=== PATIENT | female | born 1940 | race Caucasian/White ===

== ENCOUNTER 2023-11-01 08:20 | Observation (INO) ==
--- NOTE | 2023-11-01 08:38 | Emergency Department Note ---
Impression & Plan Vertigo, Right-sided carotid artery disease, Hypoxia ED Provider Note NAME: CYDNEY REYNOLDS AGE: 82 SEX: F : 1940 ARRIVES VIA: Walk-In INFORMANT: Patient, ED PROVIDER(S): Boubacar Rosales DO CHIEF COMPLAINT: Off-balance HPI: The patient is an 82-year-old female who presented to the emergency department for an evaluation of feeling off balance. The patient had symptoms that began on Tuesday evening. She is visiting family from [place]. She came to the emergency department today because of ongoing worsening symptoms. She feels that she cannot walk. She cannot turn her head without feeling off balance. She describes nausea. She denies having any vomiting. She denies having any chest pain or difficulty breathing. The patient did have a slight runny nose she did a home COVID test that was negative. ROS: See above HPI for pertinent positives & negatives. A total of 10 systems reviewed and were otherwise negative. PAST MEDICAL HISTORY: See Below PAST SURGICAL HISTORY: See Below FAMILY HISTORY: See Below SOCIAL HISTORY: See Below HOME MEDICATIONS: See Below ALLERGIES: See Below VITALS: See Below PHYSICAL EXAMINATION: GENERAL: Patient is awake alert in no acute distress patient is resting comfortably and showing no signs of anxiety EYES: The conjunctivae are clear. The pupils are round and reactive. No nystagmus was elicited. EARS, NOSE, MOUTH AND THROAT: The nose is without any evidence of any deformity. NECK: The neck is nontender and supple. RESPIRATORY: Normal respiratory effort is noted there is no evidence of wheezing rhonchi or rales CARDIOVASCULAR: Regular rate and rhythm noted there no murmurs rubs or gallops normal S1 normal S2. GASTROINTESTINAL: The abdomen is soft. Abdomen is nontender. MUSCULOSKELETAL/EXTREMITIES: There is no evidence of gross deformity full range of motion is noted in the hips and shoulders. SKIN: There is no obvious evidence of any rash. There are no petechiae, pallor or cyanosis noted. NEUROLOGIC: Patient is awake alert and oriented x3 strength is symmetric patellar reflexes are 2+ bilaterally. There is no drift in the upper extremities. Speech was clear. Rapid alternating movements appear symmetric. [id number] was symmetric. MEDICAL DECISION MAKING: The patient is an 82-year-old female who presented to the emergency department with ataxia and vertigo symptoms. She had no focal neurologic deficits but her gait was unsteady. Given her age and comorbidities further laboratory and radiographic studies were obtained to rule out a central cause for her vertigo. I discussed the patient's laboratory and radiographic studies with her. She was found to have significant right-sided carotid artery disease. 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 I discussed the patient's laboratory and radiographic studies with the [facility] hospitalist. They have agreed to evaluate the patient in the emergency department for further management and disposition. The patient was treated with Zofran as well as Phenergan. She did have some episodes of low oxygen saturation which I am not sure how to explain at this time. Chest x-ray showed no acute process. She did not have chest pain or tachycardia. This may require further workup. Triage Nursing notes reviewed. Prior medical records reviewed Vital Signs: reviewed and remarkable for hypertension and hypoxia. Differential diagnosis: Benign positional vertigo, dehydration, hypovolemia, anemia, tumor, infection, hypoglycemia, electrolyte abnormalities, cardiac sources, intracerebral event, toxicologic, neurologic, as well as other pathologies. ER treatment provided: See below Diagnostics interpreted by me: ECG: EKG was obtained in the emergency department. My interpretation is normal sinus rhythm at 93 bpm. There were no PVCs. Right bundle-branch block pattern was noted. Inferior Q waves were also appreciated. No previous tracing was available. Cardiac Monitoring: An order was placed for continuous cardiac monitoring. The monitor shows a rate of 90 bpm with sinus rhythm. Laboratory studies: As stated above and show below. Imaging studies: See below. Radiographic imaging was reviewed by myself Consultation(s): I discussed this case with Dr. Villalba who is on-call for the [facility] hospitalist group. Past Med/Surg History Problem List Hypoxia (Acute) Right-sided carotid artery disease (Acute) Vertigo (Acute) Medical History Smoking history Hyperlipidemia Hypertension Diabetes Social History Smoking Status: Former smoker Preferred Language: [place] Feels Safe at Home: Yes Allergies Allergies Allergy/AdvReac Type Severity Reaction Status Date / Time No Known Allergies Allergy Unverified 11/01/23 10:45 Home Meds Home Medications Medication Instructions Recorded Confirmed aspirin 81 mg tablet,delayed 81 mg PO DAILY 11/01/23 11/01/23 release budesonide 3 mg 6 mg PO DAILY 11/01/23 11/01/23 capsule,delayed,extended release clobetasol 0.05 % topical ointment 1 applic topical DAILY PRN Skin 11/01/23 11/01/23 Irritation losartan 100 mg tablet 100 mg PO DAILY 11/01/23 11/01/23 metformin 750 mg tablet,extended 750 mg PO DAILY 11/01/23 11/01/23 release 24 hr rosuvastatin 5 mg tablet 5 mg PO DAILY 11/01/23 11/01/23 Results & Data (ED) Vital Signs Vital Signs - 24 hr 11/01/23 08:25 11/01/23 08:30 11/01/23 08:38 Temperature 36.9 C Temperature Source Oral Pulse Rate 100 H 94 H Pulse Rate from SpO2 Sensor 94 H Respiratory Rate 20 20 Respiratory Effort / Characteristics Non-Labored Spontaneous Respiratory Depth Normal Respiratory Pattern Regular Blood Pressure 142/65 H 144/59 H Blood Pressure Mean 90 110 Pulse Oximetry 93 90 88 L Oxygen Delivery Method Room Air Room Air Oxygen Flow Rate Sepsis Recent Fever Within 48 Hours No Sepsis New/Unexplained Change in Mental Status No Sepsis Action Taken by Nursing No Action Required 11/01/23 08:39 11/01/23 08:40 11/01/23 08:57 Temperature Temperature Source Pulse Rate 93 H 92 H Pulse Rate from SpO2 Sensor 92 H Respiratory Rate 20 22 Respiratory Effort / Characteristics Respiratory Depth Respiratory Pattern Blood Pressure Blood Pressure Mean Pulse Oximetry 87 L 88 L Oxygen Delivery Method Nasal Cannula Oxygen Flow Rate 1 Sepsis Recent Fever Within 48 Hours Sepsis New/Unexplained Change in Mental Status Sepsis Action Taken by Nursing 11/01/23 09:00 11/01/23 09:14 11/01/23 09:30 Temperature Temperature Source Pulse Rate 98 H 97 H 92 H Pulse Rate from SpO2 Sensor 98 H 97 H 92 H Respiratory Rate 18 18 Respiratory Effort / Characteristics Respiratory Depth Respiratory Pattern Blood Pressure 134/63 159/88 H 141/67 H Blood Pressure Mean 106 122 110 Pulse Oximetry 92 92 Oxygen Delivery Method Nasal Cannula Nasal Cannula Oxygen Flow Rate 1 1 Sepsis Recent Fever Within 48 Hours Sepsis New/Unexplained Change in Mental Status Sepsis Action Taken by Nursing 11/01/23 10:00 Temperature Temperature Source Pulse Rate 95 H Pulse Rate from SpO2 Sensor 97 H Respiratory Rate 18 Respiratory Effort / Characteristics Respiratory Depth Respiratory Pattern Blood Pressure 112/64 Blood Pressure Mean 87 Pulse Oximetry 92 Oxygen Delivery Method Nasal Cannula Oxygen Flow Rate 1 Sepsis Recent Fever Within 48 Hours Sepsis New/Unexplained Change in Mental Status Sepsis Action Taken by Intermediate Medications Current Medication List: was personally reviewed by me Laboratory Data Attestation: I reviewed the patient's lab results. 11/01/23 08:40 11/01/23 08:40 Lab Results 11/01/23 11/01/23 11/01/23 Range/Units 08:39 08:40 08:56 WBC 5.88 (4.8-10.8) K/ul RBC 4.58 (4.20-5.40) M/uL Hgb 14.1 (12.0-16.0) g/dl POC Hgb 14.3 (12.0-16.0) g/dl Hct 41.8 (37.0-47.0) % POC Hct 42 (37-47) % MCV 91.3 (80.0-100.0) fL MCH 30.8 (25.0-34.0) pg MCHC 33.7 (32.0-36.0) g/dL RDW Std Deviation 53.1 H (36.4-46.3) fL RDW Coeff of Duc 15.8 H (11.5-14.5) % Plt Count 151 (130-400) K/uL MPV 9.9 (9.4-12.4) fL Immature Gran % (Auto) 0.3 % Neut % (Auto) 79.6 % Lymph % (Auto) 15.0 % Hendry % (Auto) 4.8 % Eos % (Auto) 0.0 % Baso % (Auto) 0.3 % Neut # (Auto) 4.68 (1.40-6.50) K/uL Lymph # (Auto) 0.88 L (1.20-3.40) K/uL Hendry # (Auto) 0.28 (0.11-0.59) K/uL Eos # (Auto) 0.00 (0.00-0.50) K/uL Baso # (Auto) 0.02 (0.00-0.20) K/uL Immature Gran # (Auto) 0.02 (0.01-0.20) K/uL PT 11.0 (9.0-12.0) Seconds INR 1.0 (0.9-1.1) APTT 27 (21-31) Seconds PTT Ratio 1.0 POC Sodium 133 L (135-144) mmol/L Sodium 133 L (136-145) mmol/L POC Potassium 3.9 (3.3-5.0) mmol/L Potassium 4.0 (3.5-5.1) mmol/L POC Chloride 98 L (101-112) mmol/L Chloride 100 (98-107) mmol/L Carbon Dioxide 25 (21-32) mmol/L POC Total CO2 25 (24-31) mmol/L Anion Gap 8 (3-11) POC Anion Gap 16.0 (16-25) mmol/L POC BUN 14 (7-18) mg/dl BUN 15 (6-23) mg/dl Creatinine 0.74 (0.6-1.2) mg/dl POC Creatinine 0.8 (0.6-1.3) mg/dl Est Cr Clr Drug Dosing Not Reportable Est GFR ( Amer) 87.4 ml/min Est GFR (Non-Af Amer) 75.4 ml/min BUN/Creatinine Ratio 20.3 H (10-20) Glucose 118 H (70-99(Fasting)) mg/dl POC Glucose 118 H (70-99) mg/dl POC Glucose (other) 125 H (70-99) mg/dl Calcium 9.1 (8.6-10.3) mg/dl POC Ioniz Calcium Kai 1.16 (1.12-1.32) mmol/l Magnesium 1.8 (1.7-2.4) mg/dl Total Bilirubin 1.0 (0.2-1.0) mg/dl AST 35 (13-39) U/L ALT 31 (7-52) U/L Alkaline Phosphatase 64 (34-104) U/L Troponin I High Sens 12.0 (0-14) pg/ml Total Protein 6.8 (6.0-8.3) gm/dl Albumin 3.7 (3.4-5.0) gm/dl Globulin 3.1 (2.5-4.0) gm/dl Albumin/Globulin Ratio 1.2 (0.9-2) Administered Medications Discontinued Medications Albuterol (Albut/Ipratrop 3mg/0.5mg Neb 3 Ml Vial) 3 ml NEB NOW STA; Protocol Stop: 11/01/23 11:01 Last Admin: 11/01/23 11:13 Dose: 3 ml Documented By: TARAN Lactated Ringer's (Lr) 1,000 mls @ 999 mls/hr IV .Q1H1M ONE Stop: 11/01/23 12:00 Last Admin: 11/01/23 11:13 Dose: 999 mls/hr Documented By: TARAN Ioversol (Optiray 320 125ml) 120 ml IV ONCE ONE Stop: 11/01/23 09:08 Last Admin: 11/01/23 09:07 Dose: 120 ml Documented By: MADDY Meclizine HCl (Meclizine Hcl 25 Mg Tab) 25 mg PO NOW STA Stop: 11/01/23 08:36 Last Admin: 11/01/23 08:44 Dose: 25 mg Documented By: TARAN Ondansetron HCl (Ondansetron Inj 2 Mg/Ml 2 Ml Vial) 4 mg IV NOW STA Stop: 11/01/23 08:36 Last Admin: 11/01/23 08:44 Dose: 4 mg Documented By: TARAN Imaging Data Attestation: I personally reviewed and interpreted this imaging study as follows: My Impression: 1 view chest x-ray was obtained in the emergency department. My interpretation is no free air or definite infiltrate, final report below. CT of the brain was obtained in the emergency department. My interpretation is no intracranial hemorrhage or mass effect, final report below. Radiologist's Impression: Chest X-Ray 11/01/23 08:35 XR chest 1V portable CLINICAL HISTORY: neuro deficit, acute stroke suspected COMPARISON STUDY: No previous studies for comparison. FINDINGS: There is no pneumothorax or pleural effusion. No consolidation is identified to suggest pneumonia. There is mild cardiomegaly. There is underlying emphysema. 7 mm irregular left mid to upper lung density is present. Interstitial thickening is likely chronic. IMPRESSION: 1. No acute cardiopulmonary findings. 2. 7 mm irregular left mid to upper lung density. This is likely artifactual however a pulmonary nodule could appear similar. Nonemergent chest CT is recommended. 3. Emphysema. ACT 112: Positive. There are findings on this exam that require communication between the performing entity and the patient following Patient Test Result Information Act ([place] Act 112) guidelines. Electronically signed by: Arpan Aguirre M.D. 11/01/2023 9:[address] 11/01/23 08:[address] OF THE BRAIN; CT ANGIOGRAM OF THE BRAIN CLINICAL HISTORY: Dizziness. Loss of balance. Difficulty with ambulation. Neurological deficit. Stroke like symptoms. COMPARISON STUDY: No priors. TECHNIQUE: Unenhanced axial CT scan of the brain is performed. Subsequently, following the IV administration of 120 cc of Optiray 320, CT angiogram of the brain was performed from the skull base to the vertex. Images are reviewed in the axial, sagittal, and coronal planes. 3-D MIPS images are created and assessed. IV contrast was administered without complication. A dose lowering technique was utilized adhering to the principles of ALARA. CT DOSE: 934. mGy.cm FINDINGS: Brain parenchyma: There is age related involutional change noting mild subcortical and periventricular microangiopathic disease. There is no hemorrhage, mass effect, or evidence of acute territorial ischemia by CT criteria. There is no evidence of enhancing mass lesion on the angiogram phase images. No extra-axial fluid collection is seen. Yoder-white matter differentiation is preserved. Ventricles, sulci, and cisterns: Prominent secondary to additional change. CT angiogram of the brain: There is atherosclerotic calcification of the cavernous carotid and vertebral arteries. The internal carotid arteries are widely patent, as are the anterior and middle cerebral arteries. The vertebrobasilar system and posterior cerebral arteries are widely patent. The vertebral arteries are codominant. 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 No additional aneurysm is identified. No foci of high-grade stenosis or focal vessel occlusion is seen throughout the intracranial circulation. Dural sinuses: Clear as visualized. Orbits: The bony orbits are intact. The orbital contents are normal as visualized noting bilateral ocular lens implants. Sinuses and mastoids: The visualized paranasal sinuses are clear. The mastoid air cells are well pneumatized. Calvarium: Unremarkable. IMPRESSION: 1. There is no hemorrhage, mass effect, or evidence of acute territorial ischemia by CT criteria. 2. 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 3. Otherwise unremarkable CT of the brain. ACT 112: Negative or not required by law. Electronically signed by: Tyrone Hoover M.D. 11/01/2023 9:23 AM Head CTA 11/01/23 08:[address] OF THE BRAIN; CT ANGIOGRAM OF THE BRAIN CLINICAL HISTORY: Dizziness. Loss of balance. Difficulty with ambulation. Neurological deficit. Stroke like symptoms. COMPARISON STUDY: No priors. TECHNIQUE: Unenhanced axial CT scan of the brain is performed. Subsequently, following the IV administration of 120 cc of Optiray 320, CT angiogram of the brain was performed from the skull base to the vertex. Images are reviewed in the axial, sagittal, and coronal planes. 3-D MIPS images are created and assessed. IV contrast was administered without complication. A dose lowering technique was utilized adhering to the principles of ALARA. CT DOSE: 934. mGy.cm FINDINGS: Brain parenchyma: There is age related involutional change noting mild subcortical and periventricular microangiopathic disease. There is no hemorrhage, mass effect, or evidence of acute territorial ischemia by CT criteria. There is no evidence of enhancing mass lesion on the angiogram phase images. No extra-axial fluid collection is seen. Yoder-white matter differentiation is preserved. Ventricles, sulci, and cisterns: Prominent secondary to additional change. CT angiogram of the brain: There is atherosclerotic calcification of the cavernous carotid and vertebral arteries. The internal carotid arteries are widely patent, as are the anterior and middle cerebral arteries. The vertebrobasilar system and posterior cerebral arteries are widely patent. The vertebral arteries are codominant. 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 No additional aneurysm is identified. No foci of high-grade stenosis or focal vessel occlusion is seen throughout the intracranial circulation. Dural sinuses: Clear as visualized. Orbits: The bony orbits are intact. The orbital contents are normal as visualized noting bilateral ocular lens implants. Sinuses and mastoids: The visualized paranasal sinuses are clear. The mastoid air cells are well pneumatized. Calvarium: Unremarkable. IMPRESSION: 1. There is no hemorrhage, mass effect, or evidence of acute territorial ischemia by CT criteria. 2. 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 3. Otherwise unremarkable CT of the brain. ACT 112: Negative or not required by law. Electronically signed by: Tyrone Hoover M.D. 11/01/2023 9:23 AM Neck CTA 11/01/23 08:35 CT ANGIOGRAPHY OF THE NECK WITH CONTRAST CLINICAL HISTORY: neuro deficit, acute stroke suspected COMPARISON STUDY: No previous studies for comparison. Technique: CT angiography of the carotid and vertebral arteries was obtained using Optiray and 3D reconstruction on an independent workstation. NASCET criteria was utilized. Automated exposure control was utilized for the study. A dose lowering technique was utilized adhering to the principles of ALARA. Findings: Emphysema is incidentally noted within visualized portions of the lung apices. There is no cervical lymphadenopathy. There are no cervical spine fractures. The bilateral vertebral arteries are patent. No stenoses within the vertebral arteries are present. There is no aneurysm or dissection within the neck. There is extensive calcified plaque within the proximal right internal carotid artery which results in 70% stenosis. The patent right internal carotid artery measures 1.4 mm at site of narrowing and 3.5 mm distally. There is mild narrowing of the proximal left internal carotid artery. The vessel measures 2.3 mm at site of narrowing and 3.7 mm distally. IMPRESSION: 1. 70% stenosis of the proximal right internal carotid artery due to calcified atherosclerotic plaque. 30% stenosis of the proximal left internal carotid artery. 2. Patent bilateral vertebral arteries. ACT 112: Negative or not required by law. Electronically signed by: Arpan Aguirre M.D. 11/01/2023 9:30 AM Discharge Plan Visit Data Chief Complaint: Neuro Symptoms/Deficit Stated Complaint: UNABLE TO WALK, NO BALANCE ED Provider: Boubacar Rosales Discharge Problem: Vertigo, Right-sided carotid artery disease, Hypoxia Patient Disposition: Being Evaluated by Hospitalist Discharge Instructions Interventions: ED Discharge Assessment Last Done: 11/01/23 12:53 Discharge Problem: Right-sided carotid artery disease Qualifiers: Carotid artery disease type: unspecified Qualified Code(s): I77.9 - Disorder of arteries and arterioles, unspecified
[2023-11-01] MEDS: ONDANSETRON INJ 2 MG/ML 2 ML VIAL IV STA (08:44)
[2023-11-01] MEDS: MECLIZINE HCL 25 MG TAB PO STA (08:44)
[2023-11-01 09:01] LABS: Basophils # (auto) 0.02 K/uL (0.00-0.20); Basophils % (auto) 0.3 %; Hematocrit (blood only) 41.8 % (37.0-47.0); Hemoglobin 14.1 g/dl (12.0-16.0); Immature Granulocytes # (auto) 0.02 K/uL (0.01-0.20); Immature Granulocytes % (auto) 0.3 %; Lymphocytes # (auto) 0.88 K/uL (1.20-3.40); Mean Corpuscular Hemoglobin 30.8 pg (25.0-34.0); Mean Corpuscular Hgb Conc 33.7 g/dL (32.0-36.0); Mean Corpuscular Volume 91.3 fL (80.0-100.0); Mean Platelet Volume 9.9 fL (9.4-12.4); Monocytes # (auto) 0.28 K/uL (0.11-0.59); Monocytes % (auto) 4.8 %; Neutrophils # (auto) 4.68 K/uL (1.40-6.50); Neutrophils % (auto) 79.6 %; Platelet Count 151 K/uL (130-400); RDW Coefficient of Variation 15.8 % (11.5-14.5); RDW Standard Deviation 53.1 fL (36.4-46.3); Red Blood Count 4.58 M/uL (4.20-5.40); White Blood Count 5.88 K/ul (4.8-10.8)
[2023-11-01] MEDS: OPTIRAY 320 125ml IV ONE (09:07)
[2023-11-01 09:08] LABS: iSTAT Creatinine 0.8 mg/dl (0.6-1.3); iSTAT Hemoglobin 14.3 g/dl (12.0-16.0); iSTAT Ionized Calcium 1.16 mmol/l (1.12-1.32); iSTAT Potassium 3.9 mmol/L (3.3-5.0)
[2023-11-01 09:16] LABS: Alanine Aminotransferase 31 U/L (7-52); Albumin Globulin Ratio 1.2 (0.9-2); Albumin Level 3.7 gm/dl (3.4-5.0); Alkaline Phosphatase 64 U/L (34-104); Anion Gap 8 (3-11); Aspartate Aminotransferase 35 U/L (13-39); BUN Creatinine Ratio 20.3 (10-20); Blood Urea Nitrogen 15 mg/dl (6-23); Calcium 9.1 mg/dl (8.6-10.3); Carbon Dioxide 25 mmol/L (21-32); Chloride 100 mmol/L (98-107); Est GFR (African American) 87.4 ml/min; Est GFR (Non-African American) 75.4 ml/min; Globulin 3.1 gm/dl (2.5-4.0); Glucose 118 mg/dl (70-99(Fasting)); Magnesium 1.8 mg/dl (1.7-2.4); Sodium 133 mmol/L (136-145); Total Protein 6.8 gm/dl (6.0-8.3)
--- NOTE | 2023-11-01 09:20 | XRay Report ---
XR chest 1V portable CLINICAL HISTORY: neuro deficit, acute stroke suspected COMPARISON STUDY: No previous studies for comparison. FINDINGS: There is no pneumothorax or pleural effusion. No consolidation is identified to suggest pne umonia. There is mild cardiomegaly. There is underlying emphysema. 7 mm irregular left mid to upper l bree density is present. Interstitial thickening is likely chronic. IMPRESSION: 1. No acute cardiopulmonary findings. 2. 7 mm irregular left mid to upper lung density. This is likely artifactual however a pulmonary nodu le could appear similar. Nonemergent chest CT is recommended. 3. Emphysema. ACT 112: Positive. There are findings on this exam that require communication between the performing entity and the patient following Patient Test Result [place] Act ([place] Act 112) guidelines. Electronically signed by: Arpan Aguirre M.D. 11/01/2023 9:18 AM
--- NOTE | 2023-11-01 09:25 | CT Scan Report ---
UNENHANCED CT OF THE BRAIN; CT ANGIOGRAM OF THE BRAIN CLINICAL HISTORY: Dizziness. Loss of balance. Difficulty with ambulation. Neurological deficit. Strok e like symptoms. COMPARISON STUDY: No priors. TECHNIQUE: Unenhanced axial CT scan of the brain is performed. Subsequently, following the IV adminis tration of 120 cc of Optiray 320, CT angiogram of the brain was performed from the skull base to the vertex. Images are reviewed in the axial, sagittal, and coronal planes. 3-D MIPS images are created a nd assessed. IV contrast was administered without complication. A dose lowering technique was utiliz ed adhering to the principles of ALARA. CT DOSE: 934. mGy.cm FINDINGS: Brain parenchyma: There is age related involutional change noting mild subcortical and periventricula r microangiopathic disease. There is no hemorrhage, mass effect, or evidence of acute territorial isc hemia by CT criteria. There is no evidence of enhancing mass lesion on the angiogram phase images. No extra-axial fluid collection is seen. Yoder-white matter differentiation is preserved. Ventricles, sulci, and cisterns: Prominent secondary to additional change. CT angiogram of the brain: There is atherosclerotic calcification of the cavernous carotid and verteb ral arteries. The internal carotid arteries are widely patent, as are the anterior and middle cerebra l arteries. The vertebrobasilar system and posterior cerebral arteries are widely patent. The vertebr al arteries are codominant. There is a 3.5 mm aneurysm of the supraclinoid right internal carotid art marah seen on axial image #83. No additional aneurysm is identified. No foci of high-grade stenosis or focal vessel occlusion is seen throughout the intracranial circulation. Dural sinuses: Clear as visualized. Orbits: The bony orbits are intact. The orbital contents are normal as visualized noting bilateral oc ular lens implants. Sinuses and mastoids: The visualized paranasal sinuses are clear. The mastoid air cells are well pneu matized. Calvarium: Unremarkable. IMPRESSION: 1. There is no hemorrhage, mass effect, or evidence of acute territorial ischemia by CT criteria. 2. 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 3. Otherwise unremarkable CT of the brain. ACT 112: Negative or not required by law. Electronically signed by: Tyrone Hoover M.D. 11/01/2023 9:23 AM
[2023-11-01 09:32] LABS: Partial Thromboplastin Time 27 Seconds (21-31)
--- NOTE | 2023-11-01 09:32 | CT Scan Report ---
CT ANGIOGRAPHY OF THE NECK WITH CONTRAST CLINICAL HISTORY: neuro deficit, acute stroke suspected COMPARISON STUDY: No previous studies for comparison. Technique: CT angiography of the carotid and vertebral arteries was obtained using Optiray and 3D rec onstruction on an independent workstation. NASCET criteria was utilized. Automated exposure control was utilized for the study. A dose lowering technique was utilized adhering to the principles of ALA RA. Findings: Emphysema is incidentally noted within visualized portions of the lung apices. There is no cervical lymphadenopathy. There are no cervical spine fractures. The bilateral vertebral arteries are patent. No stenoses within the vertebral arteries are present. There is no aneurysm or dissection wi thin the neck. There is extensive calcified plaque within the proximal right internal carotid artery which results in 70% stenosis. The patent right internal carotid artery measures 1.4 mm at site of na rrowing and 3.5 mm distally. There is mild narrowing of the proximal left internal carotid artery. Th e vessel measures 2.3 mm at site of narrowing and 3.7 mm distally. IMPRESSION: 1. 70% stenosis of the proximal right internal carotid artery due to calcified atherosclerotic plaque . 30% stenosis of the proximal left internal carotid artery. 2. Patent bilateral vertebral arteries. ACT 112: Negative or not required by law. Electronically signed by: Arpan Aguirre M.D. 11/01/2023 9:30 AM
[2023-11-01] MEDS: LACTATED RINGER'S 1,000 ML IV ONE (11:13)
[2023-11-01] MEDS: ALBUT/IPRATROP 3MG/0.5MG NEB 3 ML VIAL NEB STA (11:13)
--- NOTE | 2023-11-01 11:20 | Electrocardiogram Report ---
Test Reason : Blood Pressure : / mmHG Vent. Rate : 093 BPM Atrial Rate : 093 BPM P-R Int : 134 ms QRS Dur : 124 ms QT Int : 348 ms P-R-T Axes : 037 -33 -15 degrees QTc Int : 432 ms Normal sinus rhythm Left axis deviation Right bundle branch block Abnormal ECG No previous ECGs available Confirmed by Boubacar Patel ([id number]) on 11/01/2023 11:20:10 AM Referred By: Confirmed By:Boubacar Patel
[2023-11-01] MEDS ORDERED: GLUCAGON FOR INJ 1 MG VIAL SQ PRN (12:52)
[2023-11-01] MEDS ORDERED: GLUCOSE 40% GEL 15 GM TUBE PO PRN (12:52)
[2023-11-01] MEDS ORDERED: GLUCOSE 10 TAB/TUBE PO PRN (12:52)
[2023-11-01] MEDS ORDERED: CARBOHYDRATES FOR HYPOGLYCEMIA PO PRN (12:52)
[2023-11-01] MEDS ORDERED: DEXTROSE 50% 50 ML SYRINGE IV PRN (12:52)
[2023-11-01] MEDS ORDERED: ALBUT/IPRATROP 3MG/0.5MG NEB 3 ML VIAL NEB PRN (12:52)
--- NOTE | 2023-11-01 13:10 | History & Physical Report ---
Date of Service November 01, 2023 Assessment & Plan (1) Hypoxia: (2) Vertigo: (3) Hypertension: (4) Diabetes: (5) Right-sided carotid artery disease: Plan Yen is an 82 year old female with PMH of T2DM, hypertension, hyperlipidemia, colitis admitted for presyncopal dizziness. (1) Dizziness/vertigo - This is likely secondary to decreased oral intake of solids/liquids in the setting of being in the heat over the weekend. Change in blood pressure med ication may have also played a role. - Ordered echo for evaluation of heart function, does have risk factors for heart failure. Rule out aortic stenosis. - Zofran PRN for nausea. - Status post 1L of fluids in the emergency department. Continue 1.5 maintenance LRs. - Strict I/O. - PT/OT evaluation for difficulty with ambulation. - AM labs: CBC, CMP (2) Hypoxia - Patient has significant smoking history in the past. Chest XRay indicates a pulmonary nodule with emphysema. - Patient likely chronically low O2. Requiring 1L O2 nasal cannula to saturate above 88%. - Duoneb given in the ED. Ordered PRN for worsening wheezing/shortness of breath - Most likely have underlying COPD, start on Incruse 1 puff daily, Recommend PFT's outpatient. (3) Right internal carotid artery stenosis, hyperlipidemia - Patient is on a statin at home and was found to have 70% stenosis in right internal carotid artery. - No symptoms at this time. - AM lipid profile - Increase 5mg rosuvastatin to 20mg at this time. (4) Type 2 diabetes - Hold home metformin, sliding scale insulin - AM A1c (5) Hypertension - Hold home medications at this time due to dizziness. Admission and Anticipated Discharge Date Admission Date: November 01, 2023 History of Present Illness Chief Complaint: dizziness Primary Care Provider: NO PCP Yen is an 82 year old female with PMH of diabetes, hyperlipidemia, hypertension, colitis who presented for dizziness for two days. Yen is in town for a family reunion, which took place outdoors this past weekend. For the past two days, she has felt dizziness and unsteadiness with standing, this improves with sitting down. She did check her blood pressure yesterday and it was 130s/70s. Blood pressure medication was changed one week ago by out of town PCP. Yen further reports decreased appetite over past few says due to nausea. She did have an episode of diarrhea this morning. No feelings of shortness of breath. No cough or chest pain. No changes in vision, no headache, no one sided weakness. No difficulty with speech. Allergies Allergy/AdvReac Type Severity Reaction Status Date / Time No Known Allergies Allergy Unverified 11/01/23 10:45 Home Medications Medication Instructions Recorded Confirmed Type aspirin 81 mg tablet,delayed 81 mg PO DAILY 11/01/23 11/01/23 History release budesonide 3 mg 6 mg PO DAILY 11/01/23 11/01/23 History capsule,delayed,extended release clobetasol 0.05 % topical ointment 1 applic topical DAILY PRN Skin 11/01/23 11/01/23 History Irritation losartan 100 mg tablet 100 mg PO DAILY 11/01/23 11/01/23 History metformin 750 mg tablet,extended 750 mg PO DAILY 11/01/23 11/01/23 History release 24 hr rosuvastatin 5 mg tablet 5 mg PO DAILY 11/01/23 11/01/23 History Past Med/Surg History Problem List Hypoxia (Acute) Right-sided carotid artery disease (Acute) Vertigo (Acute) Medical History Smoking history Hyperlipidemia Hypertension Diabetes Social History Smoking Status: Former smoker Tobacco Type: Cigarettes Second Hand Exposure: No; Do You Dip or Chew Tobacco: No; Tobacco Cessation Education Requested by Patient: No Hx Alcohol Use: No Hx Substance Use: No Preferred Language: Belarusian Hourly Caregiver Required: No Beliefs That Will Affect Care: None Current Living Situation: Alone Current Living Situation Comment: lives home alone in a house Other Information That Helps Us Care for You: No Feels Safe at Home: Yes Safety Concerns: Feels Safe At This Time Assistive Devices: Denture - Upper, Denture - Lower and Glasses Review of Systems Review of Systems: see HPI Physical Exam Physical Exam: Constitutional: Well developed, well nourished. Alert and oriented to person, place, and time. Gen: No acute distress, alert, interactive. HEENT: Supple, no thyromegaly, oropharynx normal. 1L of O2 nasal cannula in place. Resp:Non-labored breathing, rales at left lower lung base, otherwise clear to auscultation bilaterally. CV:Normal rate and rhythm, normal S1/S2, no M/R/G Abd: Soft, non-distended, normoactive bowels, no masses. No tenderness to palpation. Extr: no LE edema. Skin: No rashes, lesions, or erythema Results & Data Results & Data Vital Signs (Past 12 Hours) Vital Signs Temp Pulse Resp BP Pulse Ox O2 Del Method O2 Flow Rate 11/01/23 11:39 92 H 22 89 L 11/01/23 11:31 129/67 11/01/23 11:18 88 9 L 96 11/01/23 11:12 90 22 92 11/01/23 11:00 100/68 11/01/23 10:51 94 H 29 H 93 11/01/23 10:33 90 22 94 11/01/23 10:30 127/60 11/01/23 10:21 91 H 22 93 11/01/23 10:00 95 H 18 112/64 92 Nasal Cannula 1 11/01/23 09:30 92 H 18 141/67 H 92 Nasal Cannula 1 11/01/23 09:14 97 H 18 159/88 H 92 Nasal Cannula 1 11/01/23 09:00 98 H 134/63 11/01/23 08:57 92 H 22 88 L Nasal Cannula 1 11/01/23 08:40 93 H 11/01/23 08:39 20 87 L 11/01/23 08:38 94 H 20 144/59 H 88 L 11/01/23 08:30 90 Room Air 11/01/23 08:25 36.9 C 100 H 20 142/65 H 93 Room Air Supervising Physician Co-Signing Physician Notes I personally examined the patient and verified all rosenbaum points of history and exam, discussed case, and agree with decision making with Dr Ulloa and Yousuf Cain MS4 lightheaded. Unsteady on her feet. Was at a family reunion over the weekendtrying to drink enough but was also outside in 90 degree heat. No shortness of breath no new dyspnea on exertion, no cough. She has a hard time quantifying how long she smoked, but probably for at least 50 years. Vitals noted, in general she is awake and alert oriented pleasant no distress. HEENT normocephalic atraumatic mucous membranes moist. Lungs are quiet with diminished air entry throughout but no rales rhonchi or wheezes good effort no accessory muscle use no appearance of dyspnea no conversational dyspnea. Gait is slow and a bit unsteadywhenever she for stands up she admits to feeling a little bit lightheaded although she does not appear pale or syncopal, but with walking she generally zigzags to objects to steady herself. No appearance of dyspnea on exertion lightheadedness/unsteadinessgiven that it is brand-new and she had no such symptoms before, as well as the fact that the majority of her symptoms fit quite nicely with orthostaticI suspect she is dehydrated. Her symptoms of probably improved to a degree with the IV fluids given, anticipate ongoing improvement with further IV fluids. Hopefully the unsteadiness on her feet also resolved, but given that this is a little bit different than just purely orthostatic lightheadedness, proactively getting PT/OT assessments. Obviously if it resolves with hydration then at all tied together with the orthostasis. Hypoxiaasymptomatic but with significant pack-yearssuspect underlying COPD. Two-step to anticipate possible need for outpatient oxygen. Initiate inhalers for now. Outpatient follow-up for pulmonary function tests and the more appropriate management based on her PFTs as well as chronic symptoms/appearance asymptomatic carotid stenosisrisk reduction/outpatient management asymptomatic small intracranial aneurysmoutpatient follow-up pulmonary noduleoutpatient follow-up otherwise as above (5) Right-sided carotid artery disease Carotid artery disease type: unspecified Qualified Code(s): I77.9 - Disorder of arteries and arterioles, unspecified
[2023-11-01] MEDS: LACTATED RINGER'S 1,000 ML IV SCH (14:21)
--- NOTE | 2023-11-01 15:30 | XCELERA ---
[id number]
[2023-11-01] MEDS: ONDANSETRON INJ 2 MG/ML 2 ML VIAL IV PRN (15:57)
--- NOTE | 2023-11-01 17:27 | Billing Data ---
Date of Service November 01, 2023 Coding Level of Care Code 44287 SUB INP/OBS CARE MIN
[2023-11-01] MEDS: INSULIN ASPART PER UNIT CHARGE SC SCH (17:31)
[2023-11-01 21:24] LABS: Appearance Urine Clear (Clear); Bacteria Urine Automated None Seen (None Seen); Bilirubin Urine Negative (Negative); Blood Urine Negative (Negative); Cast Urine Automated 0-2 /lpf (0-2); Color Urine Dark Yellow; Epithelial Cell Urine Auto 0-2 /hpf (0-2); Glucose Urine UA Negative (Negative); Ketones Urine 1+ (Negative); Leukocyte Esterase Urine 2+ (Negative); Nitrite Urine Negative (Negative); Protein Urine Trace (Negative); Specific Gravity Urine 1.043 (1.000-1.030); Urobilinogen Urine Negative (Negative); WBC Urine Automated 21-50 /hpf (0-5); pH Urine 5.5 (4.5-7.5)
[2023-11-01] MEDS: ACETAMINOPHEN 1,000 MG/100 ML VIAL IV PRN (21:39)
[2023-11-02 06:30] LABS: Basophils # (auto) 0.03 K/uL (0.00-0.20); Basophils % (auto) 0.5 %; Hematocrit (blood only) 40.7 % (37.0-47.0); Hemoglobin 13.5 g/dl (12.0-16.0); Immature Granulocytes # (auto) 0.04 K/uL (0.01-0.20); Immature Granulocytes % (auto) 0.7 %; Lymphocytes # (auto) 0.84 K/uL (1.20-3.40); Lymphocytes % (auto) 14.1 %; Mean Corpuscular Hemoglobin 30.8 pg (25.0-34.0); Mean Corpuscular Hgb Conc 33.2 g/dL (32.0-36.0); Mean Corpuscular Volume 92.7 fL (80.0-100.0); Mean Platelet Volume 10.3 fL (9.4-12.4); Monocytes # (auto) 0.37 K/uL (0.11-0.59); Monocytes % (auto) 6.2 %; Neutrophils # (auto) 4.68 K/uL (1.40-6.50); Neutrophils % (auto) 78.5 %; Platelet Count 116 K/uL (130-400); RDW Coefficient of Variation 15.7 % (11.5-14.5); RDW Standard Deviation 53.5 fL (36.4-46.3); Red Blood Count 4.39 M/uL (4.20-5.40); White Blood Count 5.96 K/ul (4.8-10.8)
[2023-11-02 06:42] LABS: BUN Creatinine Ratio 21.3 (10-20); Chol HDL Ratio 3.2 (0-5); Creatinine Clr Calc Pharmacy 61.2 ml/min; Est GFR (African American) 97.8 ml/min; Est GFR (Non-African American) 84.4 ml/min; Potassium 4.2 mmol/L (3.5-5.1)
[2023-11-02 07:11] LABS: Estimated Average Glucose 148 mg/dl; Hemoglobin A1C 6.8 % (4.5-5.6)
[2023-11-02] MEDS: PNEUMOCOCCAL VACCINE (PCV20) 20-VAL CONJ-DIP CRM/PF 0.5 ML SYR IM ONE (09:28)
[2023-11-02] MEDS: ROSUVASTATIN CALCIUM 20 MG TAB PO SCH (09:28)
[2023-11-02] MEDS: UMECLIDINIUM BROMIDE 62.5MCG/BLISTER 7 PUFFS/INHALER INH SCH (11:58)
--- NOTE | 2023-11-02 13:00 | Discharge Summary ---
Date of Service November 02, 2023 Admission HPI Per Admitting Provider Yen is an 82 year old female with PMH of diabetes, hyperlipidemia, hypertension, colitis who presented for dizziness for two days. Yen is in town for a family reunion, which took place outdoors this past weekend. For the past two days, she has felt dizziness and unsteadiness with standing, this improves with sitting down. She did check her blood pressure yesterday and it was 130s/70s. Blood pressure medication was changed one week ago by out of town PCP. Yen further reports decreased appetite over past few says due to nausea. She did have an episode of diarrhea this morning. No feelings of shortness of rebecca th. No cough or chest pain. No changes in vision, no headache, no one sided weakness. No difficulty with speech. Admission Exam Per Admitting Provider Constitutional: Well developed, well nourished. Alert and oriented to person, place, and time. Gen: No acute distress, alert, interactive. HEENT: Supple, no thyromegaly, oropharynx normal. 1L of O2 nasal cannula in place. Resp:Non-labored breathing, rales at left lower lung base, otherwise clear to auscultation bilaterally. CV:Normal rate and rhythm, normal S1/S2, no M/R/G Abd: Soft, non-distended, normoactive bowels, no masses. No tenderness to palpation. Extr: no LE edema. Skin: No rashes, lesions, or erythema Principal Diagnosis Dizziness 2/2 dehydration Discharge Exam General: NAD, AOx3 HEENT: NCAT, 2L of O2 nasal cannula in place Resp: CTAB, non-labored breathing CV: RRR, no m/r/g Abd: soft, nt/nd, +BS Neuro: gait normal, with good station, balance, stride length, and turning Skin: No rashes, lesions, or erythema Discharge Data Allergies Allergy/AdvReac Type Severity Reaction Status Date / Time No Known Allergies Allergy Unverified 11/01/23 10:45 Consultations 11/01/23 10:18 ED Decision to Admit Stat Ordered Studies 11/01/23 08:35 CT angio head w con Stat CT angio neck with con Stat CT head/brain wo con Stat Hospital Course (1) Hypoxia: (2) Vertigo: (3) Hypertension: (4) Diabetes: (5) Right-sided carotid artery disease: Bradley Barlow is an 82 year old female with PMH of T2DM, hypertension, hyperlipidemia, colitis admitted for presyncopal dizziness. (1) Dizziness/vertigo - This is likely secondary to decreased oral intake of solids/liquids in the setting of being in the heat over the weekend. Change in blood pressure medication may have also played a role. - Ordered echo for evaluation of heart function, does have risk factors for heart failure. Rule out aortic stenosis. - NPO - Given 1L of fluids in the emergency department and then LR maintenance fluids - ECHO showed 65-70%, EKG sinus rhythm, BP normalized after fluids - Pt advised to improve oral intake to avoid repeat episode of dehydration. Try to drink 8 cups (64 oz) of water daily and avoid being out in high heat Hypoxia - Significant smoking history in the past, likely chronically low O2. Required 2L O2 via nasal cannula to saturate above 88%. - CXR shows pulmonary nodule with emphysema. High suspicion fo underlying COPD - Take Incruse, 1 puff daily - Take albuteral, 2 puffs as needed - Need outpatient appointment for pulmonary function testing (PFTs) Right internal carotid artery stenosis - Patient is on a statin at home and was found to have 70% stenosis in right internal carotid artery. - No symptoms at this time. - Increased rosuvastatin to 40mg daily - Requires outpatient monitoring Intracranial aneurysm - Found to have slight (3.5 mm) bulge of the supraclinoid right internal carotid artery. - Less than 1/2 the size that we might consider at-risk for rupture, but merits outpatient monitoring Type 2 diabetes - Hold home metformin, sliding scale insulin - AM A1c Hypertension - Hold home medications at this time due to dizziness Total Time Total Time Spent Total Time Spent (In Minutes): <30 Discharge Plan Discharge Items Patient Disposition: Home - Self-Care Reason For Visit: DIZZINESS Discharge Diagnosis: Dizziness 2/2 dehydration Activity: Per Instructions section Non-emergency contact: Primary Care Provider Call non-emergency contact if: you have any medication questions, your symptoms worsen and you have a fever Follow-up/Referrals: PCP,NO [Primary Care Provider] - Diet: Regular Addtl Attending Provider Instructions: You were admitted to the hospital for dizziness/weakness. This was likely due to excessive heat and inadequate fluid intake, leading to dehydration. You were treated with IVF and improved. You were also found to have poor oxygen saturation which, combined with your history of smoking, gives us concern for Chronic Obstructive Pulmonary Disease (COPD). Supplemental oxygen improved your numbers, but further evaluation of this condition is necessary. There were other findings that are not concerning enough for intervention in hospital, but do should be followed up outpatient. Dizziness/vertigo - This is likely secondary to decreased oral intake of solids/liquids in the setting of being in the heat over the weekend. Change in blood pressure medication may have also played a role. - Given 1L of fluids in the emergency department and then LR maintenance fluids - ECHO showed 65-70%, EKG sinus rhythm, BP normalized after fluids - Improve oral intake to avoid repeat episode of dehydration. Try to drink 8 cups (64 oz) of water daily and avoid being out in high heat Hypoxia - Significant smoking history in the past, likely chronically low O2. Required 2L O2 via nasal cannula to saturate above 88%. - CXR shows pulmonary nodule with emphysema. High suspicion fo underlying COPD - Take Incruse, 1 puff daily - Take albuteral, 2 puffs as needed - Need outpatient appointment for pulmonary function testing (PFTs) Right internal carotid artery stenosis - Found to have 70% stenosis in right internal carotid artery, without symptoms - Take rosuvastatin 40mg daily - Requires outpatient monitoring Intracranial aneurysm - Found to have slight (3.5 mm) bulge of the supraclinoid right internal carotid artery. - Less than 1/2 the size that we might consider at-risk for rupture, but merits outpatient monitoring Please bring this discharge summary with you to your next office appointment so that your provider can review it at that time. An updated list of all your medications is included with your hospital discharge paperwork; please review this list closely and make note of any changes. We have CHANGED your rosuvastatin to 40 mg (2 x 20mg pill) daily Take your medications as instructed; do not skip a dose. Make sure all of your doctors know every medicine you are taking (including [id number] medicines, vitamins, and supplements). Call your PCP before taking any new medicines because some of these may interact with your current medications, or may make your symptoms worse. Make a follow-up appointment with your PCP within the next week. It is very important that you follow up with them shortly after discharge from the hospital. You need further evaluation / monitoring of the issues described above. Contact your PCP if you have any issues with your medication or your symptoms return or worsen. Call 911 or go to the ER if you experience any of the following: Sudden, severe abdominal pain or nausea/vomiting Severe chest pain, or chest pain that radiates (moves) to your jaw or arm Sudden, severe shortness of breath or difficulty breathing Thank you for allowing us to participate in your care. Pending Studies at Discharge: No Stand-Alone Forms: My [facility], Smoking Cessation Medications and DC Order Prescriptions: New rosuvastatin 20 mg Tablet 40 mg PO DAILY 30 Days Qty: 60 0RF Incruse Ellipta 62.5 mcg/actuation Blister With Device 1 mcg inhalation DAILY 30 Days Qty: 30 0RF albuterol sulfate 90 mcg/actuation HFA aerosol inhaler 2 inh inhalation Q8H PRN (Reason: shortness of breath or wheezing) Qty: 8.5 0RF Continued aspirin 81 mg Tablet,Delayed Release (Dr/Ec) 81 mg PO DAILY clobetasol 0.05 % ointment 1 applic TOPICAL DAILY PRN (Reason: Skin Irritation) budesonide 3 mg capsule,delayed,extend.release 6 mg PO DAILY Rx Instructions: As of 11/01/23 patient is currently taking 6mg by mouth daily, unsure of how long she has before she moves to 3mg daily losartan 100 mg tablet 100 mg PO DAILY metformin 750 mg tablet extended release 24 hr 750 mg PO DAILY Discontinued rosuvastatin 5 mg tablet 5 mg PO DAILY Discharge Orders: Discharge Order (Routine); Ordered 11/02/23 Ordered By: Jace Booth/Other Patient Handouts: Managing Type 2 Diabetes Admission Data Admit Date/Time: 11/01/23 10:04 Attending Provider: Surinder Villalba Admit Provider: Tyrone Ulloa Primary Care Provider: PCP,NO Other Providers: Surinder Villalba Other Interventions: Discharge Summary Assessment (RN) Last Done: 11/02/23 13:06 Supervising Physician Co-Signing Physician Notes I personally examined the patient and verified all rosenbaum points of history and exam, discussed case, and agree with decision making with Dr Martinez and Yousuf Cain MS4 Feels better. Feels steady on feet. Son agrees that she is stable on her feet. She feels up to going home. No dyspnea. Fortunately did not desaturate with respiratory therapy walking her. Extensive discussion on staying hydrated, as well as loose ends of probable COPD, asymptomatic carotid stenosis, asymptomatic small aneurysm, pulmonary nodule. Vitals noted, in general she is awake and alert pleasant no distress. HEENT normocephalic atraumatic mucous membranes moist. Breathing unlabored no accessory muscle use good effort. Skin shows no rashes no pallor or icterus. Neuro without focal deficits. lightheadedness/unsteadiness Overall was consistent with orthostasis/dehydration and improved as such. Has resolved. Safe/stable for home. P.o. hydration outlined. Hypoxiaasymptomatic but with significant pack-yearssuspect underlying COPD. Two-step reassuring and currently does not need outpatient oxygen. Initiate inhalers for now (scheduled LAMA, as needed beta agonist). Outpatient follow-up for pulmonary function tests and the more appropriate management based on her PFTs as well as chronic symptoms/appearance asymptomatic carotid stenosisrisk reduction/outpatient management (continue aspirin/escalate statin) asymptomatic small intracranial aneurysmoutpatient follow-up pulmonary noduleoutpatient follow-up mild asymptomatic thrombocytopenia on this morning's CBCoutpatient follow-up otherwise as abovesafe/stable for home. Discussed the need for close and ongoing PCP follow-up especially given how many "loose ends" she hasthese were outlined in her discharge instructions, outlined verbally, discussed how to get ahold of us if they/PCP need to, and recommended getting access to the patient portal for direct access to her information while to allow continuity of care/follow-up and to close the loop on all of these loose ends. Resident Activity Tracking Resident Involvement: Resident Care Provided Care Provided: Adult Hospital Medicine
--- NOTE | 2023-11-02 17:02 | Billing Data ---
Date of Service November 02, 2023 Coding Level of Care Code 76404 IN/OBS DISCH 30 MIN/LESS
== END 2023-11-02 13:50 | disposition home or self-care (01) ==
LOC: ED 08:20 → EDINP 08:20 → SUATTDRO 10:04 → 4W 12:53